=== PATIENT | female | born 1960 | race Caucasian/White ===

== ENCOUNTER 2017-03-16 19:28 | Emergency (ER) | payer OTHER ==
[2017-03-16] MEDS ORDERED: morphine 4 MG/ML VIAL (20:47)
[2017-03-16] MEDS ORDERED: ONDANSETRON 4 MG INJ (20:47)
[2017-03-16] MEDS: ONDANSETRON 4 MG INJ IV (21:00)
[2017-03-16] MEDS: morphine 4 MG/ML VIAL IV (21:00)
[2017-03-16] MEDS: SOD CHLORIDE 0.9% 1,000 ML IV (21:09)
[2017-03-16 21:10] LABS: ADD MAN DIFF? NO
[2017-03-16] MEDS: BELLADONNA/PHENOBARBITAL TAB PO (21:10)
[2017-03-16] MEDS: LIDOCAINE/MYLANTA 40 ML BTL PO (21:10)
[2017-03-16] MEDS: KETOROLAC 15 MG INJ IV (21:10)
[2017-03-16 21:14] LABS: WHITE BLOOD COUNT 11.5 10^3/ul (4.8-10.8)
[2017-03-16 21:14] LABS: BASOPHILS % 0.3 % (0.0-2.0); EOSINOPHILS # 0.1 10^3/ul (0.0-0.5); EOSINOPHILS % 0.8 % (0.0-7.0); HEMATOCRIT 41.2 % (37.0-47.0); HEMOGLOBIN 13.8 g/dl (12.0-16.0); LYMPHOCYTES # 1.7 10^3/ul (0.8-2.9); LYMPHOCYTES % 14.6 % (15.0-51.0); MEAN CORPUSCULAR HEMOGLOBIN 30.8 pg (29.0-33.0); MEAN CORPUSCULAR HGB CONC 33.5 g/dl (32.0-37.0); MEAN PLATELET VOLUME 10.3 fl (7.4-10.4); MONOCYTE # 0.5 10^3/ul (0.3-0.9); MONOCYTES % 4.6 % (0.0-11.0); NEUTROPHIL # 9.1 10^3/ul (1.6-7.5); NEUTROPHILS % 79.2 % (39.0-77.0); PLATELET COUNT 214 10^3/UL (140-415); RED BLOOD COUNT 4.48 10^6/ul (4.20-5.40); RED CELL DISTRIBUTION WIDTH 12.2 % (11.5-14.5)
[2017-03-16 21:29] LABS: INR 0.93; PROTIME 12.6 Sec (11.9-14.9)
[2017-03-16 21:34] LABS: ALANINE AMINOTRANSFERASE 36 IU/L (13-69); ALBUMIN 4.7 g/dl (3.3-4.9); ALBUMIN/GLOBULIN RATIO 1.27; ALKALINE PHOSPHATASE 112 IU/L (42-121); ANION GAP 21 (8-16); ASPARTATE AMINO TRANSFERASE 26 IU/L (15-46); BILIRUBIN,INDIRECT 0.3 mg/dl (0-1.1); BILIRUBIN,TOTAL 0.3 mg/dl (0.2-1.3); BLOOD UREA NITROGEN 9 mg/dl (7-20); CALCIUM 9.4 mg/dl (8.4-10.2); CARBON DIOXIDE 28 mmol/L (21-31); CHLORIDE 99 mmol/L (97-110); CREATININE 0.69 mg/dl (0.44-1.00); GLUCOSE 200 mg/dl (70-220); LIPASE 97 U/L (23-300); SODIUM 144 mmol/L (135-144); TOTAL PROTEIN 8.4 g/dl (6.1-8.1)
[2017-03-16] MEDS: ENALAPRILAT 1.25 MG INJ IV (21:40)
[2017-03-16 21:53] LABS: TROPONIN-I < 0.012 ng/ml (0.00-0.12)
[2017-03-16] MEDS: HYDROmorphONE 1 MG/ML SYG IV (22:55)
== END 2017-03-16 23:20 | disposition home or self-care (01) ==
LOC: E/R 19:28
DX: K80.20 Calculus of gallbladder without cholecystitis without obstruction (principal); I10 Essential (primary) hypertension; E66.9 Obesity, unspecified; Z68.26 Body mass index [BMI] 26.0-26.9, adult
CPT/HCPCS: 36415; 71010; 76705; 80053; 83690; 84484; 85025; 85610; 93005; 96374; 96375; 99285-25